=== PATIENT | female | born 1990 | race Caucasian/White ===

== ENCOUNTER 2018-01-23 09:25 | Emergency (ER) | payer OTHER ==
[2018-01-23 10:12] LABS: BASO % 0.2 % (0.0-1.0); EOS % 0.3 % (0.0-3.0); HEMATOCRIT 40.3 % (36.0-47.0); HEMOGLOBIN 13.6 g/dl (12.0-16.0); IMMATURE GRANULOCYTE % 0.3 % (0-3.0); LYMPH # 2.8 10^3/uL (1.5-6.5); LYMPH % 23.7 % (24.0-44.0); MEAN CORPUSCULAR HEMOGLOBIN 31.4 pg (27.0-33.0); MEAN CORPUSCULAR HGB CONC 33.7 g/dl (32.0-36.5); MEAN CORPUSCULAR VOLUME 93.1 fl (80.0-96.0); MONO # 0.6 10^3/uL (0.0-0.8); NEUTROPHILS # 8.4 10^3/uL (1.8-7.7); NEUTROPHILS % 70.5 % (36.0-66.0); PLATELET COUNT, AUTOMATED 235 10^3/uL (150-450); RED BLOOD COUNT 4.33 10^6/uL (4.00-5.40); RED CELL DISTRIBUTION WIDTH 11.4 % (11.5-14.5); WHITE BLOOD COUNT 11.9 10^3/uL (4.0-10.0)
[2018-01-23 10:35] LABS: HCG, SERUM QUANTITATIVE 5 MIU/ML
== END 2018-01-23 11:55 | disposition home or self-care (01) ==
LOC: M ED 09:25
DX: O03.9 Complete or unspecified spontaneous abortion without complication (principal); Q51.3 Bicornate uterus; F17.210 Nicotine dependence, cigarettes, uncomplicated
CPT/HCPCS: 76801

== ENCOUNTER → 2018-04-16 | Outpatient (CLI) | payer OTHER | LOC: M LRY 12:05 | DX: M54.6 Pain in thoracic spine (principal); R31.9 Hematuria, unspecified | CPT/HCPCS: 74018; 87086 ==

== ENCOUNTER → 2018-04-16 | Outpatient (REF) | payer OTHER | LOC: M SFHCLERA 12:44 | DX: M54.6 Pain in thoracic spine (principal); R31.9 Hematuria, unspecified ==

== ENCOUNTER 2018-12-29 07:31 | Inpatient (IN) | payer OTHER ==
[~2018-12-29] VITALS: Ht 162.6 cm; Wt 103.8 kg
[2018-12-29] VITALS (45 sets, daily range): BP systolic 128–204; BP diastolic 72–123
[2018-12-29] MEDS ORDERED: PRENTAB9 PO (08:00)
[2018-12-29] MEDS ORDERED: HEPA10004 IJ (08:00)
[2018-12-29] MEDS ORDERED: LOVE1INJ SC (08:03)
[2018-12-29] MEDS ORDERED: LACTATED RINGER'S 1000 ML IV STA (08:05)
--- NOTE | 2018-12-29 08:31 | HPEPDOC ---
Obstetrical History & Physical General Date of Admission Dec 29, 2018 at 07:31 History of Present Illness 28 yo @ 39+0 by 7+3 wk US on [id number] presents to L&D for scheduled IOL d/t heparin window. On admission severe range BPs noted. Reports hx of elevated BPs prior to . She denied this throughout her . Denies DAMON, vision changes, n/v, and RUQ pain. Denies DFM, LOF, vaginal bleeding, and CTX. GBS negative. Chief Complaint: Induction of labor Information Provided By: Patient Age: 28 : 3 Term: 0 Pre-term: 0 Abortions: 2 Livin Care Care: Good Care Number of Visits: 7 Dating Final EDC: Jan 05, 2019 Final EDC for Daily Update: Jan 05, 2019 Final EDC by: 1st trimester (US) LMP: March 24, 2018 1st Trimester Date: May 22, 2018 Weeks + Days: 7.3 Estimated Date of Confinement: Jan 05, 2019 EGA at Admission: 39.0 Antepartum Course Diagnos(e)s 1. hx of SAB x 2 2. elevated 1 hour glucose, 3 hour normal 3. smoker 4. overweight 5. GHTN- dx made [id number] on admission for IOL Height (inches): 64 Pre- weight (lbs.): 165 Admission Weight (lbs.): 216 Change in Weight (lbs.): 51 Past Medical History Past Obstetrical History : Past Obstetrical History: Multigravida (SAB @ 7 wks, SAB @ 7 wks) [employer] History: Spontaneous (x2) Past Medical History Medical History 1. overweight Surgical History: Tonsilectomy, [place] teeth, Other (L arm ORIF) Family History Significant Family History: No pertinent family hx Social History Marital Status: Family situation: Spouse/partner deployed Psychosocial History: No pertinent psych hx * Smoker: current smoker (1 cig/day) Alcohol: Denies Drugs: denies Abuse Violence Screening Have you been hit/kicked/slapp: No Have you been sexually assault: No Imunizations Tdap status: current ([id number]) Influenza Status: declined Allergies Coded Allergies: No Known Drug Allergy (Verified Allergy, Unknown, 01/23/18) Medications Scheduled Multivitamins/ ( 27-0.8 mg) 1 Tab Tab, 1 TAB PO DAILY Miscellaneous Medications Heparin Sodium (Porcine) (Heparin Sodium) 5,000 Unit/0.5 Ml Inj, 5,000 UNIT IJ Physical Examination Physical Examination GENERAL: A&O x 3 ABDOMEN: gravid, non-tender to touch FETUS: VTX by SVE, Leopolds , and TAUS. HEART RATE: RRR LUNGS: CTA EXTREMITIES: +2 bilat LE pitting edema. No clonus. DTRs +1. EFW- 3300 grams Laboratory Data 24H LABS Laboratory Tests 2 12/29/18 07:46: Serology Scanned Report Hepatitis B Testing CBC/BMP [id number] 16.00/12.1/35.5/225 [id number] 26.4/12.1/37.1/236 [id number] 23.7/11.9/35.7/230 3 hour GTT- 91/170/147/45 Urine Culture: Other (mixed miladys) Pertinent Laboratoy Data Blood Type: O+ RBC Antibody Screen: Negative HIV: Negative Hepatitis B: Negative Hepatitis C: Unknown Rapid Plasma Reagin: Immune Rubella: Nonreactive Varicella: Immune Chlamydia/Gonorrhea: Negative Group B Streptococcus: Negative Glucose Tolerance Test: 183 Diag/Inter Therapy 1. overweight 2. elevated 1 hour GTT 3. smoker 4. Heparin stopped [id number] Anatomy Ultrasound Ultrasound Date: Aug 18, 2018 Placenta Location: Posterior Normal Anatomy: Yes Placenta Previa: No Estimated Weight (grams): 316 Other Ultrasounds [id number] Posterior placenta, 3.31 cm from os, 625 grams, 40% Steroid Therapy Steroid Therapy: No Vaginal Examination Dilation: None Effacement: other (0%) Station: -3 Cervical Consistency: Firm Cervical Position: Posterior Presentation: Cephalic presentation Position: Vertex (occiput) Assessment Heart Rate (FHR): 140 Variability: Moderate Accelerations: Positive Decelerations: None Tocometer Contractions: No Multi-drug resistant Organism: No history of MDRO Assessment/Plan Assessment 28 yo @ 39+0 by 7+3 wk US on [id number] presents to L&D for scheduled IOL d/t heparin window. CAT I FHR tracing, no CTXs. GBS negative. Consulted with Dr. Vik on pt status to include BPs. She is aware of severe range BPs and hx of CHTN. Recommended labetalol now. BL pre-e labs. Plan Admit and orient. Inseam Trimmer and consent. Diet: regular GBS negative Labs and IV per unit protocol, with PT/PTT, INR, pre-e labs Counseled on Pitocin and IOL LR Bolus 1000 mL, then at 125 mL/hr. Anticipate C-S as appropriate. labetalol IV 20 mg now cytotec 25 mcg PV now BING HURST CNM Dec 29, 2018 08:31
[2018-12-29 08:42] LABS: HEMATOCRIT 36.2 % (36.0-47.0); HEMOGLOBIN 12.2 g/dl (12.0-15.5); MEAN CORPUSCULAR HEMOGLOBIN 32.4 pg (27.0-33.0); MEAN CORPUSCULAR HGB CONC 33.7 g/dl (32.0-36.5); PLATELET COUNT, AUTOMATED 142 10^3/uL (150-450); RED BLOOD COUNT 3.77 10^6/uL (4.00-5.40); WHITE BLOOD COUNT 16.7 10^3/uL (4.0-10.0)
[2018-12-29] MEDS ORDERED: LABETALOL HCL 100 MG/20 ML VIAL IV STA (08:54)
[2018-12-29] MEDS ORDERED: miSOPROStol 25 MCG 1/4 TAB (S0191) PV ONE (09:00)
[2018-12-29 09:23] LABS: ALT/SGPT 12 U/L (12-78); LDH LACTATE DEHYDROGENASE 166 U/L (84-246); URIC ACID 8.2 MG/DL (2.6-6.0)
[2018-12-29] MEDS ORDERED: NIFEdipine 10 MG CAP PO ONE ×2 (09:30→15:00)
[2018-12-29 09:41] LABS: INR 0.87; PROTHROMBIN TIME 11.9 SECONDS (12.1-14.4)
[2018-12-29 09:43] LABS: PARTIAL THROMBOPLASTIN TIME 28.3 SECONDS (25.4-37.6)
[2018-12-29 10:17] LABS: AMPHETAMINES URINE REFLEX NEGATIVE (NEGATIVE); BARBITURATES URINE REFLEX NEGATIVE (NEGATIVE); BENZODIAZEPINES URINE REFLEX NEGATIVE (NEGATIVE); CANNABINOIDS URINE REFLEX NEGATIVE (NEGATIVE); COCAINE METABOLITE URINE REFLE NEGATIVE (NEGATIVE); METHADONE URINE REFLEX NEGATIVE (NEGATIVE); OPIATES URINE REFLEX NEGATIVE (NEGATIVE); PHENCYCLIDINE URINE REFLEX NEGATIVE (NEGATIVE)
--- NOTE | 2018-12-29 11:58 | IPNPDOC ---
Text Note Date of Service The patient was seen on 12/29/18. NOTE [id number] @ 11:57 RN contacted this provider @ 11:47 informed patient had 2 additional severe range BPs. 28 yo @ 39+0 by 7+3 wk US on [id number]. After H&P was complete, pt stated she had elevated BPs when she was at [place](not ). Pt has CHTN. S: Resting in bed in left lateral. Friend is at bedside. Reports 2/10 mild DAMON. Denies visual changes, n/v, and RUQ pain. Denies CTXs O: VS: Severe range BPs noted(170/91, 163/75, 149/73). All other VS WNL FHR- 140, moderate variability, + accels, no decels CTXs- irregular, Q 2-6 min, lasting >90 seconds, palpated as mild, resting tone palpated as soft SVE- deferred A: 28 yo @ 39+0 with Pre-eclampsia with severe features. CAT I FHR tracing, CTXs noted P: Initiate magnesium infusion, continue to monitor and assess, reassess in [address] Chery notified and is aware of patient condition. VS,Fishbone, I+O VS, Fishbone, I+O Laboratory Tests 12/29/18 08:22 Red Blood Count 3.77 L, Mean Corpuscular Volume 96.0, Mean Corpuscular Hemoglobin 32.4, Mean Corpuscular Hemoglobin Concent 33.7, Red Cell Distribution Width 11.9 Vital Signs Date Time Temp Pulse Resp B/P (MAP) Pulse Ox O2 Delivery O2 Flow Rate FiO2 12/29/18 11:00 99.4 79 151/94 (113) 12/29/18 10:27 20 12/29/18 09:05 97 BING HURST CNM Dec 29, 2018 11:58
[2018-12-29] MEDS ORDERED: MAGNESIUM *L&D* 4 GM/100 ML BAG (40MG/ML) (J3475) As Ordered ONE (12:08)
[2018-12-29] MEDS ORDERED: MAGNESIUM SULFATE 4% INJ 20GM/500ML (40MG/ML) (J3475) As Ordered ONE (12:08)
[2018-12-29] MEDS ORDERED: CALCIUM GLUCONATE 1,000 MG in D5W MINI-BAG PLUS 100 ML IV PRN (12:15)
[2018-12-29] MEDS ORDERED: MAG Sulf (L&D) 4 GM/100 ML 4 GM in APPROPRIATE DILUENT 1 EA IV ONE (12:15)
[2018-12-29] MEDS: LR 1,000 ML IV SCH (12:28)
[2018-12-29] MEDS: MAG Sulf (OBGYN) 20GM/500ML 20,000 MG in APPROPRIATE DILUENT 1 EA IV SCH ×2 (12:59→22:13)
--- NOTE | 2018-12-29 13:19 | IPNPDOC ---
Text Note Date of Service The patient was seen on 12/29/18. NOTE RN contacted this provider @ 1215 28 yo @ 39+0 by 7+3 wk US on [id number]. CHTN-pre-e with severe features S: Resting in bed in left lateral. Friend is at bedside. Reports DAMON resolved, but now is seeing "flashy lights". Denies n/v, and RUQ pain. Reports feeling james e CTXs, described as cramping. O: VS: mild-normal range BPs, other VS WNL FHR- 145, moderate variability, + accels, no decels CTXs- irregular, Q 2-6 min, lasting <90 seconds, palpated as mild, resting tone palpated as soft SVE- closed/thick/high, firm/VTX/post A: 28 yo @ 39+0 with Pre-eclampsia with severe features. CAT I FHR tracing, CTXs noted P: Initiate pitocin IOL per unit protocol, hold at 5 mU/min, continue to monitor and assess, reassess in 2 hours or prn. VS,Fishbone, I+O VS, Fishbone, I+O Laboratory Tests 12/29/18 08:22 Red Blood Count 3.77 L, Mean Corpuscular Volume 96.0, Mean Corpuscular Hemoglobin 32.4, Mean Corpuscular Hemoglobin Concent 33.7, Red Cell Distribution Width 11.9 Vital Signs Date Time Temp Pulse Resp B/P (MAP) Pulse Ox O2 Delivery O2 Flow Rate FiO2 12/29/18 13:06 99.1 18 Room Air 12/29/18 12:51 95 12/29/18 11:46 77 149/73 (98) BING HURST CNM Dec 29, 2018 13:19
[2018-12-29] MEDS ORDERED: OXYTOCIN DRIP 30 UNITS in APPROPRIATE DILUENT 1 EA IV SCH (13:30)
--- NOTE | 2018-12-29 14:55 | IPNPDOC ---
Text Note Date of Service The patient was seen on 12/29/18. NOTE [id number] RODERICK Curran contacted this provider. Pt has had 2 severe range BPs. Recommend 20 mg Nifedipine PO x 1 now. Asked to contact with repeat pressure after dose Dr. Chery informed VS,Fishbone, I+O VS, Fishbone, I+O Laboratory Tests 12/29/18 08:22 Red Blood Count 3.77 L, Mean Corpuscular Volume 96.0, Mean Corpuscular Hemogl obin 32.4, Mean Corpuscular Hemoglobin Concent 33.7, Red Cell Distribution Width 11.9 Vital Signs Date Time Temp Pulse Resp B/P (MAP) Pulse Ox O2 Delivery O2 Flow Rate FiO2 12/29/18 14:46 77 18 166/79 (108) 12/29/18 14:40 Room Air 12/29/18 13:50 12/29/18 12:51 95 BING HURST CNM Dec 29, 2018 14:55
[2018-12-29] MEDS ORDERED: ceFAZolin 2 GM/D5W 50 ML IV BAG (J0690 PER 500MG) As Ordered ONE (15:42)
[2018-12-29] MEDS ORDERED: BICITRA 30ML SOLN UDC As Ordered ONE (15:42)
[2018-12-29] MEDS ORDERED: OXYTOCIN INJ 10 UNITS/ML VIAL (J2590) As Ordered ONE (15:50)
[2018-12-29] MEDS ORDERED: BUPIVACAINE/DEXTROSE 0.75% 2 ML AMP As Ordered ONE (15:51)
[2018-12-29] MEDS ORDERED: MORPHINE PRES-FREE INJ 10 MG/10 ML VIAL (J2274) As Ordered ONE (15:51)
[2018-12-29] MEDS ORDERED: PHENYLephrine HCL 500 MCG/5 ML (100MCG/ML) SYRINGE (J2370) As Ordered ONE (15:52)
[2018-12-29] MEDS ORDERED: ePHEDrine SULFATE 25 MG/5 ML(5MG/ML) SYRINGE As Ordered ONE (15:52)
--- NOTE | 2018-12-29 15:58 | IPNPDOC ---
Text Note Date of Service The patient was seen on 12/29/18. NOTE Decision for section Helen is a 28yo with SIUP at approx 39wk who presented today for scheduled IOL in heparin window. She was on lovenox through for hx of RPL and then transitioned to heparin at 36wk. Last reported dose was yesterday morning. Upon presentation, she was noted to have severe range bp's, for which she has received a dose of IV labetalol followed by 10mg PO nifedipine and then 20mg PO nifedipine. We are still chasing elevated bp's. She was started on IV Mag sulfate for maternal neuroprotection. She has a recent headache, no vision changes. SCE upon presentation was closed/thick/high, and she was nila q3-6min so started on low dose pitocin by MARINA Quispe. Pre-eclampsia labs returned with urine protein:creatinine 5.29 and uric acid is elevated, LFTs wnl, plt 142. Given the patient's whole clinical presentation, I offered her a PLTCS for being remote from delivery in the setting of pre-E with severe features. Unbeknownst to me, she had already discussed her desire for elective with her nurse earlier today. The patient was quickly accepting of the offer for section. We discussed all risks/benefits/alternatives at length. She and I signed the consent forms for PLTCS and blood transfusion. Nursing team and anesthesia are aware of plan. Anesthesia would like to repeat CBC since last one was >6hr ago. Once this is resulted, we will proceed to the OR. Anceph 2g IV pre-operatively Bicitra NPO pitocin discontinued we discussed need for continued IV Mg sulfate for 24hr after delivery Dr. Charity Chery MD VS,Derrick, I+O VSDerrick, I+O Laboratory Tests 12/29/18 08:22 Red Blood Count 3.77 L, Mean Corpuscular Volume 96.0, Mean Corpuscular Hemoglobin 32.4, Mean Corpuscular Hemoglobin Concent 33.7, Red Cell Distribution Width 11.9 Vital Signs Date Time Temp Pulse Resp B/P (MAP) Pulse Ox O2 Delivery O2 Flow Rate FiO2 12/29/18 15:03 163/77 12/29/18 14:46 77 18 12/29/18 14:40 Room Air 12/29/18 13:50 12/29/18 12:51 95 Charity Chery MD Dec 29, 2018 15:58
[2018-12-29 16:00] LABS: HEMATOCRIT 38.5 % (36.0-47.0); HEMOGLOBIN 12.8 g/dl (12.0-15.5); MEAN CORPUSCULAR HEMOGLOBIN 32.4 pg (27.0-33.0); MEAN CORPUSCULAR HGB CONC 33.2 g/dl (32.0-36.5); MEAN CORPUSCULAR VOLUME 97.5 fl (80.0-96.0); PLATELET COUNT, AUTOMATED 140 10^3/uL (150-450); RED BLOOD COUNT 3.95 10^6/uL (4.00-5.40); WHITE BLOOD COUNT 16.3 10^3/uL (4.0-10.0)
[2018-12-29] MEDS ORDERED: BICITRA 30ML SOLN UDC PO ONE (16:00)
[2018-12-29] MEDS ORDERED: ONDANSETRON 4MG/2ML VIAL (J2405) IV PRN ×2 (16:28→18:30)
[2018-12-29] MEDS ORDERED: NALBUPHINE HCL 10 MG/ML AMP (J2300) IV PRN ×2 (16:28→18:30)
[2018-12-29] MEDS ORDERED: METOCLOPRAMIDE INJ 10MG/2ML VIAL (J2765) IV PRN (16:28)
[2018-12-29] MEDS ORDERED: diphenhydrAMINE INJ 50MG/ML VIAL (J1200) IV PRN (16:28)
[2018-12-29] MEDS ORDERED: NALOXONE INJ 0.4 MG/1 ML VIAL (J2310) IV PRN ×2 (16:28)
[2018-12-29] MEDS ORDERED: ONDANSETRON 4MG/2ML VIAL (J2405) As Ordered ONE (17:05)
[2018-12-29] MEDS ORDERED: KETOROLAC 60 MG/2 ML VIAL (J1885) As Ordered ONE (17:05)
[2018-12-29] MEDS ORDERED: miSOPROStol 200 MCG TAB (S0191) As Ordered ONE (17:31)
[2018-12-29] MEDS ORDERED: miSOPROStol 200 MCG TAB (S0191) PR ONE (18:00)
[2018-12-29] MEDS ORDERED: MEASLES,MUMPS,RUBELLA VACCINE INJ (MMR-II) (90707) SC SCH (18:00)
[2018-12-29] MEDS ORDERED: RHOGAM 300 MCG (1500 IU) INJ (J2790) IM SCH (18:00)
[2018-12-29] MEDS ORDERED: MEPERIDINE INJ 25 MG/ML VIAL (J2175) IV PRN (18:30)
[2018-12-29] MEDS ORDERED: fentaNYL 100 MCG/2 ML INJECTION (J3010) IV PRN (18:30)
[2018-12-29] MEDS: DOCUSATE SODIUM 100 MG CAP PO SCH (21:07)
[2018-12-29] MEDS: KETOROLAC 30 MG/ML VIAL (J1885) IV SCH (23:45)
[2018-12-30] VITALS (19 sets, daily range): BP systolic 125–160; BP diastolic 67–84
[2018-12-30] MEDS ORDERED: ONDANSETRON 4MG/2ML VIAL (J2405) IV PRN
[2018-12-30] MEDS: KETOROLAC 30 MG/ML VIAL (J1885) IV SCH ×2 (05:27→11:47)
[2018-12-30 06:54] LABS: HEMATOCRIT 28.4 % (36.0-47.0); HEMOGLOBIN 9.5 g/dl (12.0-15.5); MEAN CORPUSCULAR HEMOGLOBIN 32.5 pg (27.0-33.0); MEAN CORPUSCULAR HGB CONC 33.5 g/dl (32.0-36.5); MEAN CORPUSCULAR VOLUME 97.3 fl (80.0-96.0); PLATELET COUNT, AUTOMATED 115 10^3/uL (150-450); RED BLOOD COUNT 2.92 10^6/uL (4.00-5.40); WHITE BLOOD COUNT 17.3 10^3/uL (4.0-10.0)
[2018-12-30 07:14] LABS: ALBUMIN 2.1 GM/DL (3.2-5.2); ALT/SGPT 11 U/L (12-78); BILIRUBIN,TOTAL 0.2 MG/DL (0.2-1.0); BLOOD UREA NITROGEN 11 MG/DL (7-18); CARBON DIOXIDE LEVEL 26 MEQ/L (21-32); CHLORIDE LEVEL 102 MEQ/L (98-107); CREATININE FOR GFR 0.68 MG/DL (0.55-1.30); GLOMERULAR FILTRATION RATE > 60.0 (>60); GLUCOSE, FASTING 84 MG/DL (70-100); POTASSIUM SERUM 4.8 MEQ/L (3.5-5.1); SODIUM LEVEL 135 MEQ/L (136-145); TOTAL PROTEIN 4.5 GM/DL (6.4-8.2)
[2018-12-30] MEDS: LR 1,000 ML IV SCH (08:32)
[2018-12-30] MEDS: MAG Sulf (OBGYN) 20GM/500ML 20,000 MG in APPROPRIATE DILUENT 1 EA IV SCH (08:33)
[2018-12-30] MEDS: DOCUSATE SODIUM 100 MG CAP PO SCH ×2 (08:33→20:00)
[2018-12-30] MEDS: PERCOCET 5MG/325MG TAB PO PRN ×2 (08:33→17:47)
[2018-12-30] MEDS: PRENATAL VITAMINS CHEWABLE TABLET PO SCH (08:33)
--- NOTE | 2018-12-30 09:00 | IPNPDOC ---
Progress Note Date of Service: Dec 30, 2018 Day#: 1 Progress Note PP/POD 1 SUBJECT: Helen is a 28yo [id number] who presented yesterday for scheduled IOL in heparin window, but was found to have pre-eclampsia with severe features on arrival based on persistent severe range bp's and urine prot:creat of 5. She was on lovenox through for hx of RPL and then transitioned to heparin at 36wk. She was started on IV MgSO4 with dx of severe pre-E. Her cervical exam was extremely unfavorable and given her clinical presentation, she was offered PLTCS for pre-E with severe features being remote from delivery which she desired. PLTCS occurred around 1700 on 12/29/18 and was uncomplicated. She has been continued on IV MgSO4 with plan to stop 24hr post-delivery. After surgery she ch ugged water and had vomiting, but she tolerated her breakfast this morning. She notes minimal pain, took her first dose of percocet this morning. She is not yet ambulatory while on MgSO4 and has camacho in place draining clear urine. Minimal lochia. Bottle feeding. Only complaint is some dizziness while on the MgSO4. No DAMON/vision changes/SOB/RUQ pain/CP. OBJECTIVE: VITAL SIGNS: Normal to mild range bp's, afebrile Alert and oriented times three. Abdomen: Fundus firm at U-2. Soft, appropriately tender to palpation. Pfannensteil incision covered by dry/clean dressing. Extremities: 3+ pitting pedal edema bilaterally Labs: pre-op H/H: 12.2/36.2 post-op H/H: 9.5/28.4 ASSESSMENT: Helen is a 28yo [id number] doing well on post-op/ day 1 s/p uncomplicated PLTCS for pre-eclampsia with severe features remote from delivery. No s/sx of worsening pre-E. BP normotensive to mild range. Afebrile, hemodynamically stable with no evidence of infection. Receiving MgSO4 for 24hr PP, on bedrest with camacho in place. Good UOP. Appropriate change in H/H. PLAN: 1. Routine post-op/ care 2. Continue IV MgSO4 until 1700 tonight, then ok to discontinue and remove camacho catheter. Ok to shower and remove dressing after that also. 3. Percocet and Motrin for pain, colace for bowel regimen 4. Encourage ambulation, use of IS 5. SCDs until ambulatory 6. Regular diet 7. Anticipate discharge no sooner than 01/01 due to pre-eclampsia with severe features Dr. Charity Chery MD VS, I&O, 24H, Fishbone Vital Signs/I&O Vital Signs Date Time Temp Pulse Resp B/P (MAP) Pulse Ox O2 Delivery O2 Flow Rate FiO2 12/30/18 08:33 16 12/30/18 07:30 98.0 86 132/72 (92) 96 Room Air I&O- Last 24 Hours up to 6 AM 12/30/18 06:00 Intake Total 4419.8 ml Output Total 4605 ml Balance -185.2 ml Laboratory Data 24H LABS Laboratory Tests 2 12/29/18 09:41: Urine Random Creatinine 200.0, Urine Random Total Protein 1057.0H, Urine Amphetamines Screen NEGATIVE, Urine Benzodiazepines Screen NEGATIVE, Urine Opiates Screen NEGATIVE, Urine Methadone Screen NEGATIVE, Urine Barbiturates Screen NEGATIVE, Urine Phencyclidine Screen NEGATIVE, Urine Cocaine Metabolite Screen NEGATIVE, Urine Cannabinoids Screen NEGATIVE 12/29/18 15:53: Nucleated Red Blood Cells % (auto) 0.0 12/30/18 06:32: Nucleated Red Blood Cells % (auto) 0.0, Anion Gap 7L, Glomerular Filtration Rate > 60.0, Blood Urea Nitrogen 11, Creatinine 0.68, Sodium Level 135L, Potassium Level 4.8, Chloride Level 102, Carbon Dioxide Level 26, Calcium Level 7.0L, Aspartate Amino Transf (AST/SGOT) 21, Alanine Aminotransferase (ALT/SGPT) 11L, Alkaline Phosphatase 126H, Total Bilirubin 0.2, Total Protein 4.5L, Albumin 2.1L, Albumin/Globulin Ratio 0.88L CBC/BMP Laboratory Tests 12/29/18 15:53 Red Blood Count 3.95 L, Mean Corpuscular Volume 97.5 H, Mean Corpuscular Hemoglobin 32.4, Mean Corpuscular Hemoglobin Concent 33.2, Red Cell Distribution Width 11.9 12/30/18 06:32 Red Blood Count 2.92 L, Mean Corpuscular Volume 97.3 H, Mean Corpuscular Hemoglobin 32.5, Mean Corpuscular Hemoglobin Concent 33.5, Red Cell Distribution Width 11.9, Calcium Level 7.0 L, Aspartate Amino Transf (AST/SGOT) 21, Alanine Aminotransferase (ALT/SGPT) 11 L, Alkaline Phosphatase 126 H, Total Bilirubin 0.2, Total Protein 4.5 L, Albumin 2.1 L Charity Chery MD Dec 30, 2018 09:00
--- NOTE | 2018-12-30 16:18 | RO ---
DATE OF PROCEDURE: 12/29/2018 PREOPERATIVE DIAGNOSIS: Preeclampsia with severe features remote from delivery. POSTOPERATIVE DIAGNOSIS: Preeclampsia with severe features remote from delivery. OPERATION PERFORMED: Primary low transverse section. SURGEON: Dr. Charity Chery MEDICAL SALES REPRESENTATIVE: Dr. Bong Parham Clinical service: Obstetrics. MATERIAL FORWARDED TO THE LAB FOR EXAMINATION: Placenta. INDICATIONS FOR OPERATION: Helen is a 28-year-old G3, now P 1-0-2-1 who presented to labor and delivery at 39 weeks and zero days for a planned induction of labor in a heparin window. She was on Lovenox during her for history of recurrent loss and she was switched to heparin at 36 weeks, as instructed she stopped her heparin the day prior and when she presented for induction she was noted to have severe range blood pressures that were persistent and her labs were significant for a urine protein creatinine ratio of five. She also has elevated uric acid. Her liver enzymes were normal but this did give her a diagnosis of preeclampsia with severe features for which she began receiving magnesium sulfate. She was noted by MARINA Quispe to have a very unfavorable cervix, closed, thick and high and she was started on Pitocin because she was nila too frequently for Cytotec and the Cook catheter could not be inserted, given that her cervix was closed. A few hours into the induction, when I was done in the operating room today I went and discussed with her the option of a primary low transverse section given that she was very remote from delivery. I re-checked her cervix which was still closed, thick and high. She had actually previously discussed with her nurse her desire for primary section and when I offered her the section after counseling she was very happy to accept. DESCRIPTION OF FINDINGS: Female infant in cephalic presentation. 8 and 9. Weight 2950 grams or 6 pounds 8 ounces. Normal appearing uterus, fallopian tubes and ovaries. The placenta was adherent to the posterior aspect of the uterus at an approximately 2 cm section but we were able to get the extent of the placenta out with manual removal. INFECTION CLASSIFICATION: 2. ESTIMATED BLOOD LOSS: 700 mL. IV FLUIDS: 700 mL of lactated ringers. URINE OUTPUT: 150 mL, yellow clear urine. DESCRIPTION OF OPERATION: After obtaining informed consent the patient was taken to the operating room. She had reassuring status prior on continuous monitoring. She received spinal anesthesia in the operating room and a Marti catheter was placed. Bilateral sequential compression devices were placed. She was prepped and draped in normal sterile fashion in the dorsal supine position with a left lateral tilt. She received 2 grams of IV Ancef prophylactically. Time-out was performed to confirm patient name, date of , procedure and indication and the team was in agreement. Spinal anesthesia was found to be adequate. Using an Allis clamp a Pfannenstiel skin incision was made with a scalpel carried through to the underlying layer of fascia. Fascia was incised in the midline and the incision was extended laterally with Cardenas scissors. Superior and inferior aspects of the fascial incision were grasped with Jaquelin clamps, elevated and underlying rectus muscles were dissected off bluntly and sharply. Peritoneum was entered digitally and the rectus muscles were in the midline. Peritoneal incision was extended superiorly and inferiorly with good visualization of the bladder. Bladder blade was inserted and vesicouterine peritoneum was identified, grasped with pickups and entered sharply with Metzenbaum scissors. The incision was extended laterally and a bladder flap was created digitally. Bladder blade was reinserted and the lower uterine segment was scored in a transverse fashion with the scalpel. Uterus was entered bluntly in the incision was extended with traction. Bladder blade was removed and 's head was elevated to the level of the incision. We used the vacuum very briefly for one pull and the head delivered OT presentation. The vacuum was immediately removed. The head and body were delivered without further difficulty. Nose and mouth were suctioned with bulb suction and cord was clamped times two and cut. Significantly there was actually meconium stained fluid when we entered the uterus and the placenta was meconium stained. There was no other indication on the heart rate monitoring during the brief time that she had an induction begun to indicate there would be meconium present but nonetheless it was there. Infant was handed off to the awaiting nursing team. Placenta was removed with traction on the cord and uterine massage. However, there was approximately 2 cm area of the placenta adhered to the posterior aspect of the uterus that had to be manually removed and we did several swipes within the uterus to ensure that all of the placenta had been extracted from that area. Uterus was exteriorized, cleared of all clot and debris. Uterine incision was repaired with 0 Vicryl suture in a running locking fashion. A second layer of 0 Monocryl suture was used to close the hysterotomy incision in an imbricating fashion. Uterine incision was inspected. Hemostasis was noted. Posterior cul-de-sac was irrigated, uterus returned to the abdomen. The gutters were cleared of all clot and irrigated. Peritoneum was closed using 3-0 Vicryl suture in a running fashion. Fascia was reapproximated with 0 Vicryl suture in a running fashion. Subcutaneous tissue was copiously irrigated. Katelyn's fascia was reapproximated using 3-0 Vicryl suture in a running fashion. Skin edges were approximated using three inverted interrupted stitches using 3-0 Vicryl suture followed by a running subcuticular stitch using 4-0 Monocryl. The incision was cleaned using a wet lap dried with a dry lap. Steri-Strips were applied in usual fashion perpendicular to the Pfannenstiel incision. Two strips of Telfa were layered on top of Steri-Strips followed by a dry sterile towel. Surgical drapes were removed. Sterile towel was removed and a pressure dressing was applied over the entire surgical incision. Vagina was cleared of all blood clot without active bleeding noted. Fundus was firm at U minus 2 cm. All counts were correct times two. I placed 800 mcg of Cytotec prophylactically in the rectum given that she is going to be continued on magnesium for 24 hours after delivery. Procedure was without complications and the patient tolerated procedure well. She was then taken to recovery room on the in stable condition. LULU
[2018-12-30] MEDS: IBUPROFEN 800 MG TAB PO SCH (20:00)
[2018-12-30] MEDS ORDERED: CEPACOL LOZENGE PO PRN (21:00)
[2018-12-31] MEDS: PERCOCET 5MG/325MG TAB PO PRN ×4 (01:26→23:16)
[2018-12-31 02:05] VITALS: BP 138/80
[2018-12-31] MEDS: IBUPROFEN 800 MG TAB PO SCH ×3 (04:31→20:15)
[2018-12-31 06:05] VITALS: BP 132/76
[2018-12-31] MEDS: DOCUSATE SODIUM 100 MG CAP PO SCH ×2 (09:15→20:15)
[2018-12-31] MEDS: PRENATAL VITAMINS CHEWABLE TABLET PO SCH (09:15)
[2018-12-31 10:00] VITALS: BP 147/65
--- NOTE | 2018-12-31 12:51 | IPNPDOC ---
Progress Note Date of Service: Dec 31, 2018 Day#: 2 Progress Note PP/POD 2 SUBJECT: Helen is a 28yo [id number] doing well on POD 2 s/p uncomplicated PLTCS. She presented for scheduled IOL in heparin window, but was found to have pre- eclampsia with severe features on arrival based on persistent severe range bp's and urine prot:creat of 5. She was on lovenox through for hx of RPL and then transitioned to heparin at 36wk. She was started on IV MgSO4 with dx of severe pre-E. Her cervical exam was extremely unfavorable and given her clinical presentation, she was offered PLTCS for pre-E with severe features being remote from delivery which she desired. She received IV MgSO4 for 24hr post-delivery. She is now tolerating regular diet without nausea/emesis. She notes minimal pain with medications. She is ambulating without difficulty and voiding spontaneously without issue. Minimal lochia. Bottle feeding. No DAMON/vision changes/SOB/RUQ pain/CP. OBJECTIVE: VITAL SIGNS: Normal to mild range bp's, afebrile Alert and oriented times three. Abdomen: Fundus firm at U-2. Soft, appropriately tender to palpation. Pfannensteil incision has steri strips overlying, no erythema/induration/drainage/dehiscence Extremities: 2+ pitting pedal edema bilaterally Labs: pre-op H/H: 12.2/36.2 post-op H/H: 9.5/28.4 ASSESSMENT: Helen is a 28yo [id number] doing well on post-op/ day 2 s/p uncomplicated PLTCS for pre-eclampsia with severe features remote from delivery. BP normotensive to mild range. Afebrile, hemodynamically stable with no evidence of infection. Received MgSO4 for 24hr PP, no s/sx of worsening pre- E. PLAN: 1. Routine post-op/ care 2. Regular diet 3. Percocet and Motrin for pain, colace for bowel regimen 4. Encourage ambulation, use of IS 5. Possible discharge tomorrow if meeting all criteria, will repeat CBC/CMP tomorrow am Dr. Charity Chery MD VS, I&O, 24H, Fishbone Vital Signs/I&O Vital Signs Date Time Temp Pulse Resp B/P (MAP) Pulse Ox O2 Delivery O2 Flow Rate FiO2 12/31/18 10:00 16 12/31/18 10:00 96.8 88 147/65 (92) 12/30/18 22:00 96 12/30/18 16:35 Room Air I&O- Last 24 Hours up to 6 AM 12/31/18 06:00 Intake Total 1925 ml Output Total 2496 ml Balance -571 ml Charity Chery MD Dec 31, 2018 12:51
[2018-12-31 14:07] VITALS: BP 133/65
[2018-12-31 18:00] VITALS: BP 139/86
[2019-01-01 00:08] VITALS: BP 139/78
[2019-01-01] MEDS: IBUPROFEN 800 MG TAB PO SCH ×2 (04:50→12:24)
[2019-01-01 06:20] VITALS: BP 148/94
[2019-01-01 07:36] LABS: ALT/SGPT 14 U/L (12-78); BLOOD UREA NITROGEN 10 MG/DL (7-18); CALCIUM LEVEL 8.1 MG/DL (8.5-10.1); CARBON DIOXIDE LEVEL 27 MEQ/L (21-32); CHLORIDE LEVEL 108 MEQ/L (98-107); CREATININE FOR GFR 0.65 MG/DL (0.55-1.30); GLOMERULAR FILTRATION RATE > 60.0 (>60); GLUCOSE, FASTING 76 MG/DL (70-100); POTASSIUM SERUM 4.3 MEQ/L (3.5-5.1); SODIUM LEVEL 141 MEQ/L (136-145)
[2019-01-01 07:37] LABS: ALBUMIN 2.2 GM/DL (3.2-5.2); BILIRUBIN,TOTAL 0.1 MG/DL (0.2-1.0); TOTAL PROTEIN 5.3 GM/DL (6.4-8.2)
[2019-01-01] MEDS: PRENATAL VITAMINS CHEWABLE TABLET PO SCH (07:56)
[2019-01-01] MEDS: DOCUSATE SODIUM 100 MG CAP PO SCH (07:56)
[2019-01-01] MEDS ORDERED: OXYC1TAB23 PO (09:33)
[2019-01-01] MEDS ORDERED: IBUP-1114 PO (09:33)
[2019-01-01] MEDS ORDERED: COLA100C5 PO (09:33)
--- NOTE | 2019-01-01 12:48 | IPNPDOC ---
Progress Note Date of Service: Jan 01, 2019 Day#: 3 Progress Note PP/POD 3 SUBJECT: Helen is a 28yo [id number] doing well on POD 3 s/p uncomplicated PLTCS. She presented for scheduled IOL in heparin window, but was found to have pre- eclampsia with severe features on arrival based on persistent severe range bp's and urine prot:creat of 5. She was on lovenox through for hx of RPL and then transitioned to heparin at 36wk. She was started on IV MgSO4 with dx of severe pre-E. Her cervical exam was extremely unfavorable and given her clinical presentation, she was offered PLTCS for pre-E with severe features being remote from delivery which she desired. She received IV MgSO4 for 24hr post-delivery. She is doing well with regular diet without nausea/emesis. She has minimal pain with medications. She is ambulating without difficulty and voiding spontaneously without issue. Minimal lochia. Bottle feeding. No DAMON/vision changes/SOB/RUQ pain/CP. OBJECTIVE: VITAL SIGNS: Normal to mild range bp's, afebrile Alert and oriented times three. Abdomen: Fundus firm at U-2. Soft, appropriately tender to palpation. Pfannensteil incision has steri strips overlying, no erythe ma/induration/drainage/dehiscence Extremities: 2+ pitting pedal edema bilaterally Labs: pre-op H/H: 12.2/36.2 post-op H/H: 9.5/28.4 CMP 2/8 is normal, creatinine remains wnl ASSESSMENT: Helen is a 28yo [id number] doing well on post-op/ day 3 s/p uncomplicated PLTCS for pre-eclampsia with severe features remote from delivery. BP normotensive to mild range. Afebrile, hemodynamically stable with no evidence of infection. Received MgSO4 for 24hr PP, no s/sx of worsening pre- E. PLAN: -Discharge to home today -Has home meds: percocet and Motrin for pain, colace for bowel regimen -Instructed pt to return on Friday for bp check and then will have a 2 week incision check -Discussed return precautions at length: vision changes/headaches/SOB/CP, increasing abdominal pain, foul smelling vaginal discharge, evidence of wound infection such as redness/pus/drainage, breast redness/pain, fevers/chills, heavy vaginal bleeding -Vaginal rest 6 weeks and no heavy lifting Dr. Charity Chery MD VS, I&O, 24H, [facility] Vital Signs/I&O Vital Signs Date Time Temp Pulse Resp B/P (MAP) Pulse Ox O2 Delivery O2 Flow Rate FiO2 01/01/19 06:20 98.5 75 18 148/94 (112) 01/01/19 00:08 98 12/30/18 16:35 Room Air Laboratory Data 24H LABS Laboratory Tests 2 01/01/19 06:39: Anion Gap 6L, Glomerular Filtration Rate > 60.0, Blood Urea Nitrogen 10, Creatinine 0.65, Sodium Level 141, Potassium Level 4.3, Chloride Level 108H, Carbon Dioxide Level 27, Calcium Level 8.1#L, Aspartate Amino Transf (AST/SGOT) 22, Alanine Aminotransferase (ALT/SGPT) 14, Alkaline Phosphatase 103, Total Bilirubin 0.1L, Total Protein 5.3L, Albumin 2.2L, Albumin/Globulin Ratio 0.71L CBC/BMP Laboratory Tests 01/01/19 06:39 Calcium Level 8.1 #L, Aspartate Amino Transf (AST/SGOT) 22, Alanine Aminotransferase (ALT/SGPT) 14, Alkaline Phosphatase 103, Total Bilirubin 0.1 L, Total Protein 5.3 L, Albumin 2.2 L Charity Chery MD Jan 01, 2019 12:48
--- NOTE | 2019-01-01 12:54 | DS.PDOC ---
Discharge Summary General Date of Admission Dec 29, 2018 at 07:31 Date of Discharge Jan 01, 2019 Attending Physician: Charity Chery MD Discharge Summary PROCEDURES PERFORMED DURING STAY: Primary low transverse section ADMITTING DIAGNOSES: 1. Induction of labor in heparin window with new diagnosis of pre-eclampsia with severe features upon admission 2. Remote from delivery DISCHARGE DIAGNOSES: 1. Induction of labor in heparin window with new diagnosis of pre-eclampsia with severe features upon admission 2. Remote from delivery COMPLICATIONS/CHIEF COMPLAINT: Induction Of Labor. HISTORY OF PRESENT ILLNESS/HOSPITAL COURSE: Helen is a 28yo [id number] doing well on POD 3 s/p uncomplicated PLTCS. She presented for scheduled IOL in heparin window, but was found to have pre- eclampsia with severe features on arrival based on persistent severe range bp's and urine prot:creat of 5. She was on lovenox through for hx of RPL and then transitioned to heparin at 36wk. She was started on IV MgSO4 with dx of severe pre-E. Her cervical exam was extremely unfavorable and given her clinical presentation, she was offered PLTCS for pre-E with severe features being remote from delivery which she desired. She received IV MgSO4 for 24hr post-delivery. She overall had a benign post-/post-operative course. At time of discharge, BP was normotensive to mild range. She was afebrile, hemodynamically stable with no evidence of infection and she had no s/sx of worsening pre-E. DISCHARGE MEDICATIONS: Please see below. ALLERGIES: Please see below. PHYSICAL EXAMINATION ON DISCHARGE: VITAL SIGNS: Normal to mild range bp's, afebrile Alert and oriented times three. Abdomen: Fundus firm at U-2. Soft, appropriately tender to palpation. Pfannensteil incision has steri strips overlying, no erythema/induration/drainage/dehiscence Extremities: 2+ pitting pedal edema bilaterally LABORATORY DATA: pre-op H/H: 12.2/36.2 post-op H/H: 9.5/28.4 CMP 2/8 is normal, creatinine remains wnl DIET: regular DISPOSITION: Home DISCHARGE PLAN/INSTRUCTIONS: -Discharge to home today -Has home meds: percocet and Motrin for pain, colace for bowel regimen -Instructed pt to return on Friday for bp check and then will have a 2 week incision check -Discussed return precautions at length: vision changes/headaches/SOB/CP, increasing abdominal pain, foul smelling vaginal discharge, evidence of wound infection such as redness/pus/drainage, breast redness/pain, fevers/chills, heavy vaginal bleeding -Vaginal rest 6 weeks and no heavy lifting DISCHARGE CONDITION: Stable TIME SPENT ON DISCHARGE: Greater than [address] Charity Chery MD Vital Signs/I&Os Vital Signs Date Time Temp Pulse Resp B/P (MAP) Pulse Ox O2 Delivery O2 Flow Rate FiO2 01/01/19 06:20 98.5 75 18 148/94 (112) 01/01/19 00:08 98 12/30/18 16:35 Room Air Laboratory Data Labs 24H Laboratory Tests 2 01/01/19 06:39: Anion Gap 6L, Glomerular Filtration Rate > 60.0, Blood Urea Nitrogen 10, Creatinine 0.65, Sodium Level 141, Potassium Level 4.3, Chloride Level 108H, Carbon Dioxide Level 27, Calcium Level 8.1#L, Aspartate Amino Transf (AST/SGOT) 22, Alanine Aminotransferase (ALT/SGPT) 14, Alkaline Phosphatase 103, Total Bilirubin 0.1L, Total Protein 5.3L, Albumin 2.2L, Albumin/Globulin Ratio 0.71L CBC/BMP Laboratory Tests 01/01/19 06:39 Calcium Level 8.1 #L, Aspartate Amino Transf (AST/SGOT) 22, Alanine Aminotransferase (ALT/SGPT) 14, Alkaline Phosphatase 103, Total Bilirubin 0.1 L, Total Protein 5.3 L, Albumin 2.2 L Discharge Medications Scheduled Multivitamins/ ( 27-0.8 mg) 1 Tab Tab, 1 TAB PO DAILY, (Reported) Scheduled PRN Docusate Sodium (Colace) 100 Mg Cap, 100 MG PO BID PRN for CONSTIPATION, (Reported) Ibuprofen (Ibuprofen) 400 Mg Tab, 800 MG PO Q8HP PRN for PAIN, (Reported) Oxycodone/Acetaminophen (Oxycodone/Acetaminophen 5-325 mg) 1 Tab Tab, 1 TAB PO Q4HP PRN for PAIN, (Reported) Oxycodone/Acetaminophen (Oxycodone/Acetaminophen 5-325 mg) 1 Tab Tab, 2 TAB PO Q4HP PRN for PAIN, (Reported) Allergies Coded Allergies: No Known Drug Allergy (Verified Allergy, Unknown, 3/2/18) Charity Chery MD Jan 01, 2019 12:53
== END 2019-01-01 13:15 | disposition home or self-care (01) | DRG 773 ==
LOC: M LDI 07:31 → M OBS 19:47
PROVIDERS: ADMIT Midwife; ATTEND Midwife
PROC: 10D00Z1 Extraction of Products of Conception, Low, Open Approach (ICD-10-PCS; principal; 2018-12-29 16:18)
DX: O14.14 Severe pre-eclampsia complicating childbirth (principal); Z37.0 Single live birth; Z3A.39 39 weeks gestation of pregnancy; F17.200 Nicotine dependence, unspecified, uncomplicated; O99.334 Smoking (tobacco) complicating childbirth